=== PATIENT | female | born 1970 | race Caucasian/White ===

== ENCOUNTER 2022-02-08 06:54 | Emergency (ER) | payer OTHER, SELFPAY ==
--- NOTE | ~2022-02-08 | XR_ITS ---
EXAMINATION: XR WRIST, LEFT CLINICAL INFORMATION: Injury. Pain. COMPARISON: None TECHNIQUE: PA, lateral, and oblique views of the left wrist. FINDINGS: The bones and soft tissues are normal. No fracture. Alignment is anatomic with normal joint spaces. No erosions or abnormal soft tissue calcifications. XR/XR wrist LT 2V IMPRESSION: No acute fracture or dislocation seen.
[2022-02-08 07:11] VITALS: BP 125/89; PULSE 65; RESP 18; TEMP 36.5; O2SAT 98; BMI 52.2
--- NOTE | 2022-02-08 08:25 | ED.EXTPRO ---
HPI - Extremity Problem General Chief complaint: Extremity Injury, Upper Stated complaint: L wrist pain Time Seen by Provider: 02/08/22 08:25 Source: patient Mode of arrival: ambulatory Limitations: no limitations History of Present Illness HPI Narrative: 51-year-old female presents for left wrist pain that started last night. Patient has pain when she moves her wrist, no trauma, no fevers, patient is right handed MD Complaint: extremity pain Onset (ago): day(s) (1) Pain Consistency: constant Location: left Severity scale (1-10): 6 Quality: aching Radiation: none Relieving factors: nothing Exacerbating factors: range of motion Associated symptoms: denies other symptoms Related Data Previous Rx's Medication Instructions Recorded prednisone 20 mg tablet 40 mg PO DAILY 5 Days #10 tab 02/08/22 Allergies Allergy/AdvReac Type Severity Reaction Status Date / Time No Known Allergies Allergy Verified 02/08/22 09:23 Review of Systems Constitutional: Constitutional: Denies body ache(s), Denies chills, Denies fatigue, Denies fever(s), Denies headache(s), Denies malaise and Denies weakness Eyes: Eyes: Denies diplopia ENT: Denies vertigo, Denies dizziness, Denies otalgia, Denies headache(s), Denies mouth pain, Denies post nasal drip, Denies sinus pain, Denies sinus pressure, Denies sore throat and Denies throat swelling Cardiovascular: Cardiovascular: Denies chest pain, Denies syncope, Denies leg edema, Denies lightheadedness, Denies Loss of Consciousness, Denies palpitations and Denies dyspnea Respiratory: Respiratory: Denies chest congestion, Denies cough and Denies dyspnea Gastrointestinal: Gastrointestinal: Denies abdominal pain, Denies hematochezia, Denies constipation, Denies diarrhea and Denies vomiting Musculoskeletal: Musculoskeletal: Denies deformity, Reports arthralgias, Denies joint swelling, Reports limited range of motion, Denies muscle weakness, Denies numbness, Denies radiating pain into limb and Denies tingling Neurologic: Denies confusion, Denies vertigo, Denies dizziness, Denies syncope, Denies headache(s), Denies numbness, Denies tingling and Denies weakness Psychiatric: Psychiatric: Denies anxiety, Denies confusion and Denies depression Endocrine: Endocrine: Denies fatigue and Denies palpitations Allergic/Immunologic: Allergic/Immunologic: Denies throat swelling [facility] Past Medical History [facility] Narrative: Osteoarthritis of spine Sciatica Social History Social History Advance Directives: No Advance Directives Information Provided: No Physical Exam Vital Signs: Vital Signs: Last Vital Signs Temp 97.7 F 02/08/22 07:11 Pulse 65 02/08/22 07:11 Resp 18 02/08/22 07:11 BP 125/89 02/08/22 07:11 Pulse Ox 98 02/08/22 07:11 BMI result Body Mass Index 52.2 Const: General: No confusion Nutritional Appearance: well nourished Orientation/consciousness: No confusion Limitations: no limitations Eyes: Conjunctivae: conjunctivae normal Pupils: Equal, round and reactive pupils present EOM: EOMs intact bilaterally Neck: Neck: Yes full ROM, Yes no lymphadenopathy and Yes supple Resp: Effort & Inspection: normal respiratory effort and able to speak in complete sentences Auscultation: clear to auscultation bilaterally, no crackles, no rales, no rhonchi and no wheezes Cardio: Rate: regular rate Rhythm: regular rhythm Heart sounds: S1 normal heart sound present and S2 normal heart sound present GI: Inspection: Yes normal to inspection Palpation (GI): Soft to palpation, nontender, no guarding and not rigid Percussion: Yes normal to percussion Auscultation: normal bowel sounds Skin: General skin exam: no rashes or lesions noted Neuro: General: No confusion Cranial nerves: Yes Equal, round and reactive pupils present Extrem: Left upper extremity: normal to inspection, normal capillary refill, no joint enlargement and wrist (tender ulnar and radial sides); No no cyanosis and no edema Psych: Appearance: grossly normal Affect: normal affect Attitude: cooperative Thought process: Normal thought process present Course Course Course Narrative: 51-year-old female with a past medical history of osteoarthritis of her spine, sciatica, who is morbidly obese, presents for atraumatic left wrist pain that started yesterday. On exam, patient has stable vitals, is afebrile, left wrist is not warm, red, or swollen. Patient is tender over her medial and lateral wrist. 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 She can extend her wrist up, and with resistance against my hand, pain does not radiate into her for forearm. Patient can flex her wrist down I do not think this is septic arthritis, I do not think this is a tenosynovitis, joint is not red, warm, swollen, there is no pain with resisted extension or flexion of wrist, no pain extending into forearm. Prescribed prednisone, will have patient follow-up with Orthopedics, gave wrist splint, counseled rest, ice, compression, elevation. Gave return precautions of worsening redness, swelling, warmth, pain, patient verbalized agreement understanding Reevaluation(s) Reevaluation #1: FINDINGS: The bones and soft tissues are normal. No fracture. Alignment is anatomic with normal joint spaces. No erosions or abnormal soft tissue calcifications.? XR/XR wrist LT 2V IMPRESSION: No acute fracture or dislocation seen. Discharge Plan Discharge Clinical Impression: Sprain and strain of wrist Patient Disposition: Home, Self-Care Instructions: R.I.C.E. Treatment (ED), Wrist Sprain (ED) Additional Instructions: Please call orthopedics at the following number for a follow-up appointment for your wrist [phone] Please rest, ice, elevate, and keep the wrist splint on until you see orthopedics. I have prescribed an anti-inflammatory call prednisone to your pharmacy. Please take it in the morning. Please return to emergency room if you have redness, swelling, warmth, fevers, increasing pain in your left wrist Prescriptions: New prednisone 20 mg tablet 40 mg PO DAILY 5 Days Qty: 10 0RF Referrals: Carlos Robertson MD [Physician] -
== END 2022-02-08 09:52 | disposition home or self-care (01) ==
PROVIDERS: Emergency Provider Emergency Medicine; PCP Internal Medicine
DX: S63.502A Unspecified sprain of left wrist, initial encounter (principal); S66.912A Strain of unspecified muscle, fascia and tendon at wrist and hand level, left hand, initial encounter; E66.01 Morbid (severe) obesity due to excess calories; Z68.43 Body mass index [BMI] 50.0-59.9, adult; X58.XXXA Exposure to other specified factors, initial encounter; Y93.9 Activity, unspecified; Y92.9 Unspecified place or not applicable; Y99.9 Unspecified external cause status
CPT/HCPCS: 73100; 99283

== ENCOUNTER 2022-04-26 19:53 | Emergency (ER) | payer OTHER, SELFPAY ==
--- NOTE | ~2022-04-26 | XR_ITS ---
EXAMINATION: XR KNEE, RIGHT CLINICAL INFORMATION: Pain COMPARISON: None TECHNIQUE: Four views of the right knee. FINDINGS: Small joint effusion. Bones are normal anatomic alignment with no acute fracture or dislocation. No bony destructive lesions or periosteal reaction. XR/XR knee RT 4V IMPRESSION: No acute bony abnormality.
[2022-04-26 21:28] VITALS: BP 125/80; PULSE 68; RESP 16; TEMP 36.2; O2SAT 96; BMI 54.2
--- NOTE | 2022-04-26 22:20 | ED.LOWEXIN ---
HPI - Extremity Injury (Lower) General Chief Complaint: Extremity Injury, Lower Stated Complaint: right knee pain Time Seen by Provider: 04/26/22 22:16 Source: patient Mode of arrival: ambulatory History of Present Illness HPI Narrative: This is a 51-year-old female presenting to the emergency department with complaints atraumatic right knee pain x4 days worsening. Patient tells me this might be attributed to her moving around a lot more than usual, patient tells me she is moving and has been doing some heavy lifting. Patient tells me the pain started all of a sudden, she cannot recall exactly what she was doing when it started. She tells me the pain is worse with range of motion, better at rest. She also tells me it hurts when she walks. Patient denies numbness, tingling, fevers, chills, chest pain, shortness of breath. Patient tells me she has no history of gout or pseudogout. MD complaint: knee injury Onset (ago): day(s) (4) Related Data Previous Rx's Medication Instructions Recorded prednisone 20 mg tablet 40 mg PO DAILY 5 days #10 tabs 04/26/22 Allergies Allergy/AdvReac Type Severity Reaction Status Date / Time No Known Allergies Allergy Verified 02/08/22 09:23 Review of Systems Review of Systems: Constitutional : No Weight loss, No Fever, No Chills, No Fatigue, No Malaise ENT/Mouth : No sore throat, No Rhinorrhea Eyes: No Eye Pain, No Swelling, No Redness Cardiovascular : No Chest Pain, No SOB, No Dyspnea on Exertion, No Orthopnea, No Edema, No Palpitations Respiratory : No Cough, No Sputum, No Wheezing Gastrointestinal : No Nausea, No Vomiting, No Diarrhea, No Constipation, No abdominal Pain, No Hematochezia, No Melena Genitourinary : No Dysuria, No Urinary Frequency, No Hematuria, Musculoskeletal : + joint pain, No Myalgias, + Joint Swelling Skin : No Skin Lesions, No rash Neuro : No Weakness, No Numbness, No Dizziness, No Headache All other systems reviewed and are negative Yes all other systems are reviewed and are negative [facility] Past Medical History Attestation statement: The following information was validated with the patient. Source: old records reviewed and nursing notes reviewed Physical Exam Vital Signs: Vital Signs: Last Vital Signs Temp 97.2 F 04/26/22 21:28 Pulse 68 04/26/22 21:28 Resp 16 04/26/22 21:28 BP 125/80 04/26/22 21:28 Pulse Ox 96 04/26/22 21:28 O2 Del Method 04/26/22 21:28 BMI result Body Mass Index 54.2 Vital signs stable Appearance: Alert.? Oriented X3.? No acute distress.? Head: Normocephalic, atraumatic, no step-offs or deformities Eyes: Pupils equal, round and reactive to light.? ENT: Pharynx normal.? Neck: Normal inspection.? Neck supple.? CVS: Normal heart rate and rhythm.? Pulses normal.? Respiratory: No respiratory distress.? Breath sounds normal.? Abdomen: Soft and nontender.? Skin: Skin warm and dry.? Normal skin color.? Normal skin turgor.? Extremities: No lower extremity edema.? No calf ttp. 5/5 strength to bilateral upper and lower extremities. Slightly swollen right knee when compared to the left. Some pain to palpation over right knee. 2+ popliteal pulses equal bilateral. 2+ patellar pulses equal bilateral. No signs of erythema overlying the affected area. Full rom to b/l knees however painful on right. Back: No midline tenderness, no C-spine tenderness, full range of motion, no CVA tenderness bilaterally Neuro: Oriented X 3.? No motor deficit.? No sensory deficit. CN 2-12 intact Course Reevaluation(s) Reevaluation #1: Small effusion noted to the right knee, Harsha wrap applied to area. Advised patient to follow-up with PCP and orthopedics as necessary. Likely knee effusion causing discomfort. Will send her home with prednisone 40 mg p.o. x5 days. At this time I feel comfortable discharge home Time: 22:23 MDM - Extremity Injury (Lower) MDM Narrative Medical decision making narrative: [id number] 51-year-old female presenting with atraumatic right knee pain x4 days worsening. No inciting injury. Physical examination with slight swelling over the right knee. It has some pain to palpation over the right knee. Likely knee sprain, strain or and joint effusion. Unlikely septic joint. Plan at this time is to obtain imaging. Medical Records Attestation: I reviewed the patient's medical records. Lab Data Attestation: I reviewed the patient's lab results. Critical Care Time Critical Care Time Critical Care Time: No Discharge Plan Discharge Clinical Impression: Acute knee pain, Effusion of right knee Patient Disposition: Home, Self-Care Instructions: Swollen Knee Joint (ED), Knee Pain (ED), Swollen Joint (ED) Additional Instructions: Take your medications as prescribed. If you were prescribed antibiotics today, it is important that you take your medication to their entirety, do not skip any doses, do not finish them early. Follow-up with your primary care provider this week. Return to the emergency department with new or worsening symptoms. Such as fevers, chills, chest pain, shortness of breath, nausea, vomiting, dizziness, headache, vision changes, lethargy In case of emergency call 911 Apply Harsha wrap , rest, ice, compress and elevate extremity to help decrease swelling and discomfort. You can take ibuprofen every 6 hours, Tylenol every 4 as needed for pain or discomfort. Prescriptions: New prednisone 20 mg tablet 40 mg PO DAILY 5 Days Qty: 10 0RF Discontinued prednisone 20 mg tablet 40 mg PO DAILY 5 Days Qty: 10 0RF Referrals: Zak Lennon MD [Primary Care Provider] - 2 days [facility] [Provider Group] - 2 weeks Stand Alone Forms: Work/School Release
[2022-04-26] MEDS: Ketorolac Tromethamine 15 MG/ML VIAL IM (23:09)
== END 2022-04-27 00:08 | disposition home or self-care (01) ==
PROVIDERS: Emergency Provider Internal Medicine; PCP Internal Medicine
DX: M25.561 Pain in right knee (principal); M25.461 Effusion, right knee
CPT/HCPCS: 73564; 96372; 99283; 99284; J1885

== ENCOUNTER 2022-05-06 08:02 | Outpatient (REF) | payer OTHER, SELFPAY | END 2022-05-06 08:03 | disposition home or self-care (01) | LOC: HO.HOSX 08:02 | PROVIDERS: Visit Provider Physician Assistant | DX: Z13.89 Encounter for screening for other disorder (principal) ==

== ENCOUNTER 2022-05-14 07:45 | Outpatient (REF) | payer OTHER, SELFPAY | END 2022-05-14 07:46 | disposition home or self-care (01) | LOC: HO.HOSX 07:45 | PROVIDERS: Visit Provider Physician Assistant | DX: Z13.89 Encounter for screening for other disorder (principal) ==

== ENCOUNTER 2025-09-01 09:18 | Outpatient (AMB) | payer OTHER, SELFPAY ==
--- NOTE | 2025-09-01 09:26 | MHC.OFFVIS ---
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 Patient reports ongoing pain for about a year. She has been having injections and drainage at [facility]. Her last injection was about 3 - 4 months ago with no relief. Patient is using a roller walker and scooter for mobility. Patient is taking 2 forms of Morphine for her back and it gives her mild relief. 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 Mendenhall is a 55-year-old female who presents to the office today using a bariatric walker to assist with ambulation for left knee pain greater than 1 year. She denies any injury or trauma. Patient was seen at [facility] and given a cortisone injection roughly 4-5 months ago. She reports that she did not have any relief with this. Additionally, she said that she had an MRI that was performed and she was diagnosed with a meniscal tear but treatment of this was not discussed at her appointment with the orthopedist. She reports that they did not recommend surgery at that time. She then spoke with Dr. Gerard who recommended a 2nd opinion here at [facility]. 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 She reports this has been present for greater than 1 year and had no inciting injury or trauma. Patient sees [facility] for chronic back pain in his prescribed long-acting morphine 1/2-1 tablet by mouth up to 3 times a day as needed for breakthrough pain, nabumetone by mouth as needed daily, clonidine HCl 1 tablet by mouth twice a day as needed for opioid withdrawal symptoms, methocarbamol 1 tablet by mouth 3 times a day as needed for muscle spasm, and pregabalin 1 capsule by mouth twice a day. [facility] Social History (Updated 09/01/25 @ 09:37 by Erick Mobley) Alcohol intake: never Cigarettes Per Day: 4 Current occupational status: disabled Review of Systems Const All systems reviewed & are unremarkable except as noted in HPI and below Physical Exam Vital Signs: BMI result Body Mass Index 48.8 Const General: cooperative, healthy appearing and no acute distress Resp Effort & Inspection: normal respiratory effort and able to speak in complete sentences Extrem Other: Left knee mild effusion. Psych Appearance: grossly normal Mental Status: mental status grossly normal Attitude: cooperative Office Procedures AMB Joint Injection/Aspiration Joint Injection/Aspiration Primary Site: Left Knee Prep: site was prepped using aseptic technique, ethochloride spray was applied and injection warnings given Injected: 40 mg of, Decadron, with 3 mL of, 1% plain Lidocaine, 0.25% Bupivacaine and in the joint Approach Used: anterolateral Procedure: The patient tolerated the procedure well, but had some pain with the injection and there was some relief with the local anesthesia Coding 80709 - Large joint Procedure code (CPT) selection complete Assessment & Plan Assessment & Plan (1) Osteoarthritis of left knee: Code(s): M17.12 - Unilateral primary osteoarthritis, left knee Category: Medical Plan Ms. Mendenhall is a 55-year-old female who presents to the office today using a bariatric walker to assist with ambulation for left knee pain greater than 1 year. She denies any injury or trauma. Patient was seen at [facility] and given a cortisone injection roughly 4-5 months ago. She reports that she did not have any relief with this. Additionally, she said that she had an MRI that was performed and she was diagnosed with a meniscal tear but treatment of this was not discussed at her appointment with the orthopedist. She reports that they did not recommend surgery at that time. She then spoke with Dr. Gerard who recommended a 2nd opinion here at [facility]. 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 She reports this has been present for greater than 1 year and had no inciting injury or trauma. Patient sees [facility] for chronic back pain in his prescribed long-acting morphine 1/2-1 tablet by mouth up to 3 times a day as needed for breakthrough pain, nabumetone by mouth as needed daily, clonidine HCl 1 tablet by mouth twice a day as needed for opioid withdrawal symptoms, methocarbamol 1 tablet by mouth 3 times a day as needed for muscle spasm, and pregabalin 1 capsule by mouth twice a day. While in the office today, we discussed repeat cortisone injection to see if this offers the patient any relief. The patient was offered a cortisone injection in the left knee. The patient was explained the risks, benefits, and alternatives to receiving this injection. After receiving consent for the injection, the patient had the procedure done while in the office today. The patient tolerated the procedure well with no complications. The risks, benefits, and alternatives to a corticosteroid injection were discussed with the patient, including the potential benefits of decreased inflammation and pain, improved function, and diagnostic value. Risks were reviewed, including post-injection flare, skin or fat atrophy, transient facial flushing, temporary elevation in blood glucose, bruising, and rare but serious complications such as infection, tendon weakening or rupture, and cartilage damage with repeated injections. Procedure-related discomfort and possible vasovagal symptoms were also explained. Alternatives were reviewed, including NSAIDs, physical therapy, activity modification, bracing, ice/heat, weight management, hyaluronic acid injections when appropriate, PRP or other orthobiologics, oral steroids, surgery depending on pathology, and observation. The patient verbalized understanding and elected to proceed. After receiving consent for the injection, the patient had the procedure done while in the office today. The patient tolerated the procedure well with no complications. Additionally, we will petition the insurance company for coverage of gel injections as the patient has tried and failed cortisone injections in the past, has tried multiple pain medications with no relief, Additionally, we discussed the role of gel injections in which we will put she the insurance company for coverage. Unfortunately, the patient is not a surgical candidate as she is only 55 years of age and a BMI of greater than 50. MRI report performed at [facility] on 02/09/2025: Report indicates medial meniscus tear. Moderate joint effusion. Osteoarthritis. Of note, imaging is not available for my review today. Additionally, the patient has a past medical history significant for AFib and I believe underwent an ablation 01/2025. Does not appear that she is on any anticoagulation at this time. Additionally, past medical history indicative of hypoglycemia, cancer, COPD, emphysema and asthma. Current quarter to half pack per day smoker. With the above past medical history we will continue to manage this patient nonoperatively. If gel injections are not helpful for the patient the next step would be referral to pain management for evaluation of geniculate nerve blocks. Follow up will be after gel injection approval, sooner if needed. X-rays of the left knee which were obtained while in the office today and were reviewed by me, Kelsie Way PA-C, revealed osteoarthritis. Orders: Orders XR knee LT 3V Today M25.569 - Pain in unspecified knee Coding Level of Care Code New Pt Level 4 (35294) Diagnoses Osteoarthritis of left knee M17.12 CPT Codes Coding - 53879 Large joint: 46911 - Large joint ([id number])
[2025-09-01 09:38] VITALS: BMI 48.8
--- OUTSIDE RECORDS SUMMARY | 2025-09-01 10:19 | XMS_ITS | Clinical Summary ---
Author Organization 175 [facility] Address [address] [place] [phone] Phone Care Team Providers Care Autistic Teacher Name Role Phone Zak Lnenon MD Primary Care Provider [phone] Allergies Active Allergy Reactions Criticality Noted Date Comments Doxycycline Swelling 01/12/2024 Medications silver sulfADIAZINE (SILVADENE, SSD) 1 % cream Apply topically to wound bed daily 4 Active LORazepam (ATIVAN) 1 mg tablet TAKE 1/2 TABLET BY MOUTH THREE TIMES A DAY NEEDED FOR PANIC ATTACK 3 Active levothyroxine (SYNTHROID, LEVOTHROID) 175 mcg tablet Take 1 tablet (175 mcg total) by mouth 1 (one) time each day. 3 Active FREESTYLE LANCETS MISC USE 1 NEEDLE ON THE SKIN 3 TIMES A DAY 2 Active zolpidem (AMBIEN) 10 mg tablet TAKE 1 TABLET BY MOUTH ONCE A DAY AT BEDTIME 2 Active propranoloL (INDERAL) 60 mg tablet 2 Active pregabalin (LYRICA) 150 mg capsule 2 Active pantoprazole (PROTONIX) 40 mg EC tablet 1 Active naloxone (Narcan) 4 mg/0.1 mL nasal spray 2 Active levothyroxine (SYNTHROID, LEVOTHROID) 150 mcg tablet 175 mcg. 1 Active lamoTRIgine (LaMICtal) 25 mg tablet 2 Active ketoconazole (NIZORAL) 2 % cream 1 Active blood sugar diagnostic (FreeStyle Lite Strips) test strip 2 Active fremanezumab-vfrm (Ajovy Autoinjector) 225 mg/1.5 mL auto-injector 2 Active eletriptan (RELPAX) 40 mg tablet 2 Active DULoxetine (CYMBALTA) [address] capsule 2 Active DULoxetine (CYMBALTA) [address] capsule 1 Active doxepin (SINEquan) 100 mg capsule 2 Active cholecalciferol (VITAMIN D-3) 1,250 mcg (50,000 unit) capsule Take 1 capsule (50,000 Units total) by mouth 1 (one) time per week. 9 Active albuterol sulfate (PROAIR HFA INHL) Inhale by mouth. Active ARIPiprazole (ABILIFY) 10 mg tablet Take 1 tablet (10 mg total) by mouth 1 (one) time each day. Active blood-glucose meter kit by Not Applicable route. Active divalproex sodium (DIVALPROEX ORAL) Take by mouth. Active doxepin (SINEquan) 50 mg capsule Take 10 capsules (500 mg total) by mouth at bedtime. Active FERROUS SULFATE ORAL Take by mouth. Activ e furosemide (LASIX) 20 mg tablet Take 1 tablet (20 mg total) by mouth 1 (one) time each day. Active gabapentin (NEURONTIN) 600 mg tablet Take by mouth. Activ e LORazepam (ATIVAN) 0.5 mg tablet Take 0.5 mg by mouth every 6 hours as needed. Active methocarbamoL (ROBAXIN) 750 mg tablet Take 1 tablet (750 mg total) by mouth 3 (three) times a day. Active morphine (MSIR) 15 mg tablet Take 1 tablet (15 mg total) by mouth every 4 (four) hours if needed. Max Daily Amount: 90 mg Active nabumetone (RELAFEN) 750 mg tablet Take 1 tablet (750 mg total) by mouth 2 (two) times a day. Active QUEtiapine (SEROquel) 400 mg tablet Take 1 tablet (400 mg total) by mouth 2 (two) times a day. Active Active Problems Problem Noted Date Diagnosed Date Obesity 11/03/2019 Class 3 severe obesity with body mass index (BMI) of 50.0 to 59.9 in adult ([facility] V24, [facility] V28) Encounters Date Type Department Care Team Description 07/25/2025 9:30 AM EDT Office Visit Orthopedic Surgery [facility] [address] [phone] Jignesh Jorgensen DPM Ulcer of right heel, limited to breakdown of skin ([facility] V24, [facility] V28) (Primary Dx); Foot drop, left; Dermatophytosis of nail; Pain in toe of right foot; Pain in toe of left foot; Difficulty walking; Primary osteoarthritis of both feet from Last 3 Months Surgical History Surgery Date Site/Laterality Comments CHOLECYSTECTOMY PROCEDURE: [place] LAPAROSCOPY SURG CHOLECYSTECTOMY Social History Tobacco Use Types Packs/Day Years Used Date Smoking Tobacco: Every Day Smokeless Tobacco: Never Alcohol Use Standard Drinks/Week Comments No 0 (1 standard drink = 0.6 oz pur e alcohol) Comments Unknown Sex and Gender Information Value Date Recorded Sex Assigned at Not on file Legal Sex Female 7:25 PM EST Gender Identity Not on file Sexual Orientation Not on file Obstetrics History Last Filed Vital Signs Vital Sign Reading Time Taken Comments Blood Pressure 121/84 09/24/2022 9:15 AM EST Pulse 74 09/24/2022 9:15 AM EST Temperature - - Respiratory Rate - - Oxygen Saturation - - Inhaled Oxygen Concentration - - Weight 172 kg (380 lb) 09/06/2024 9:19 AM EST Height 182.9 cm (6' 0.01 ) 09/06/2024 9:19 AM ES T Body Mass Index 51.53 09/06/2024 9:19 AM EST Plan of Treatment Upcoming Encounters Date Type Department Care Team (Late st Contact Info) Description 10/31/2025 9:30 AM EST Office Visit Orthopedic Surgery [facility] [address] [phone] Jignesh Jorgensen DPM [address] [phone] Health Maintenance Due Date Last Done Comments Breast Cancer Screening 1972 Colorectal Cancer Screening: Colonoscopy 1972 Cervical Cancer Screening: P ap Smear 1993 RSV Immunization Adult Patients (1 - Risk 50-74 years 1-dose series) 2022 Cholesterol Screening (Lipid Panel) 09/07/2022 HIV Screening 09/07/2022 Hepatitis C Screening 09/07/2022 Social Influencers of Health Screening 09/07/2022 Depression Screening 09/29/2024 Hepatitis B Vaccines (2 of 2 - CpG 2-dose series) 05/28/2025 04/30/2025 COVID-19 Vaccine (2 - 2024-2 6 season) 2025 06/28/2024 Influenza Vaccine (#1) 2025 , 06/24/2022 Zoster Vaccines (2 of 2) 06/25/2025 04/30/2025 DTaP,Tdap,and Td Vaccines (2 - Td or Tdap) 06/28/2034 06/28/2024 Pneumococcal Vaccine: 50+ Years Completed 04/30/2025 HIB Vaccines Aged Out No longer eligi ble based on patient's age to complete this topic HPV Vaccines Aged Out No longer eligi ble based on patient's age to complete this topic Hepatitis A Vaccines Aged Out No long er eligible based on patient's age to complete this topic IPV Vaccines Aged Out No longer eligi ble based on patient's age to complete this topic MMR Vaccines Aged Out No longer eligi ble based on patient's age to complete this topic Meningococcal ACWY Vaccine Aged Out N o longer eligible based on patient's age to complete this topic Meningococcal B Vaccine Aged Out No l onger eligible based on patient's age to complete this topic RSV Immunization Patients Under 20 months Aged Out No longer eligible b ased on patient's age to complete this topic Varicella Vaccines Aged Out No longer eligible based on patient's age to complete this topic Insurance [facility] Care Teams Autistic Teacher Relationship Specialty Start Date End Date Zak Lennon MD [address] [place] [address] [address] [place], [place] PCP - General Internal Medicine 05/04/19
== END 2025-09-01 10:05 | disposition home or self-care (01) ==
LOC: HO.HOS 09:18
PROVIDERS: PCP Internal Medicine; Visit Provider Physician Assistant
DX: M17.12 Unilateral primary osteoarthritis, left knee (principal)
CPT/HCPCS: 20610; 99204

== ENCOUNTER 2025-09-01 15:08 | Outpatient (REF) | payer OTHER, SELFPAY ==
--- NOTE | ~2025-09-01 | XR_ITS ---
EXAMINATION: XR KNEE, LEFT CLINICAL INFORMATION: M25.569 - Pain in unspecified knee COMPARISON: Right knee X-rays 04/26/2022 TECHNIQUE: Two views of the left knee. AP bilateral knees one view FINDINGS: Left knee: Moderate-severe medial compartment arthritis. Small marginal spurring in the lateral compartment. Mild lateral patellar tilt and lateral joint space narrowing on the sunrise view. There is a small, mildly displaced intra-articular fracture of the medial margin of the medial tibial plateau, of indeterminate age. Moderate-large effusion. No abnormal soft tissue calcification. Right knee: Mild-moderate medial compartment arthritis. XR/XR knee LT 3V IMPRESSION: Left knee: 1. Small mildly displaced intra-articular fracture of the medial margin of the medial tibial plateau. Fractures of indeterminate age. Clinically correlate. 2. Medial compartment moderate-severe arthritis. 3. Moderate-large joint effusion Right knee: Medial compartment arthritis Electronically signed by: Ben Kern MD 09/01/2025 09:36 AM DIMA
--- OUTSIDE RECORDS SUMMARY | 2025-09-02 19:10 | XMS_ITS | Clinical Summary ---
Author Organization 175 [facility] Address [address] [place] [phone] Phone Care Team Providers Care Gerontological Nurse Practitioner Name Role Phone Zak Lennon MD Primary Care Provider [phone] Allergies Active Allergy Reactions Criticality Noted Date [...] (BMI) of 50.0 to 59.9 in adult ([facility] V24, [facility] V28) Encounters Date Type Department Care Team Description 07/25/2025 9:30 AM EDT Office Visit Orthopedic Surgery [facility] [address] [phone] Jignesh Jorgensen DPM Ulcer of right heel, limited to breakdown of skin ([facility] V24, [facility] V28) (Primary Dx); Foot drop, left; Dermatophytosis of nail; Pain in toe of right foot; Pain in toe of left foot; Difficulty walking; Primary osteoarthritis of both feet from Last 3 Months Surgical History Surgery Date Site/Laterality Comments CHOLECYSTECTOMY PROCEDURE: [place] CHOLECYSTECTOMY Social History Tobacco Use [...] 9:30 AM EST Office Visit Orthopedic Surgery [facility] [address] [phone] Jignesh Jorgensen DPM [address] [phone] Health Maintenance Due Date Last Done Comments [...] patient's age to complete this topic Insurance [facility] [place] [phone] Care Teams Gerontological Nurse Practitioner Relationship Specialty Start Date End Date Zak Lennon MD [address] [place] [address] [address] [place], [place] PCP - General Internal Medicine 05/04/19
== END 2025-09-01 15:09 | disposition home or self-care (01) ==
LOC: HO.HOSX 15:08
PROVIDERS: Visit Provider Physician Assistant
DX: M17.12 Unilateral primary osteoarthritis, left knee (principal)
CPT/HCPCS: 20610; 73562; 99202; J0665; J1100; J2003